=== PATIENT | female | born 1985 | race Caucasian/White ===

== ENCOUNTER 2018-12-11 11:49 | Emergency (ER) | payer MEDICAID ==
[~2018-12-11] VITALS: Ht 147.3 cm; Wt 56.0 kg
[~2018-12-11 11:49] MED LIST: PREN1TAB49 PO
[2018-12-11 12:01] VITALS: BP 121/69; PULSE 73; RESP 18; Ht 147.3 cm; Wt 56.0 kg
[2018-12-11] MEDS ORDERED: ONDA4TAB8 PO (15:29)
[2018-12-11] MEDS ORDERED: IBUP-1542 PO (15:29)
--- NOTE | 2018-12-11 15:32 | ERD ---
ER Documentation Chief Complaint Chief Complaint R SANTACRUZ, R eye, R face pain, nausea, dizziness X 5 days LRQ AP X 1 month HPI 33-year-old female presents the emergency department with a number of different complaints. Patient states that she had a nonspecific left upper quadrant abdominal pain that she is had for over a month. It comes and goes and has no specific pattern. Associated with nausea but no diarrhea and no urinary symptoms or gynecologic symptoms. Patient reports no fevers or chills associated with the abdominal pain. She also describes a right-sided headache and right eye pain and face pain. This does not seem to be temporally related to the abdominal pain and seems to be separate. She reports no trauma, focal weakness, numbness. Her symptoms are not acute in onset or thunderclap in nature. ROS All systems reviewed and are negative except as per history of present illness. Medications Home Meds Active Scripts Ondansetron Hcl* (Zofran*) 4 Mg Tablet, 4 MG PO Q8H PRN for NAUSEA AND/OR VOMITING, #30 TAB Prov:LITO GALDAMEZ 12/11/18 Ibuprofen* (Ibuprofen*) 600 Mg Tablet, 600 MG PO Q6H PRN for PAIN, #20 TAB Prov:LITO GALDAMEZ 12/11/18 Reported Medications Vits W-Ca,Fe,Fa(<1MG) () 1 Tab Tablet, 1 PO DAILY 02/15/11 Allergies Allergies: Coded Allergies: No Known Drug Allergies (Verified Allergy, Unknown, 11/15/13) PMhx/Soc Medical and Surgical Hx: pt denies Medical Hx History of Surgery: Yes (3 C-SECTIONS) Hx Neurological Disorder: No Hx Respiratory Disorders: No Hx Cardiac Disorders: No Hx Psychiatric Problems: No Hx Miscellaneous Medical Probl: No Hx Alcohol Use: No Hx Substance Use: No Hx Tobacco Use: No Smoking Status: Never smoker FmHx Noncontributory for chief complaint Physical Exam Vitals Vital Signs Date Temp Pulse Resp B/P (MAP) Pulse Ox O2 O2 Flow FiO2 Time Delivery Rate 12/11/18 99.8 73 18 121/69 97 12:01 (86) Physical Exam GENERAL: The patient is well developed and appropriate for usual state of health in no apparent distress HEENT: Pupils equal, round, and reactive to light. EOMI. There is no scleral icterus. NECK: C-spine is soft and supple, there is no meningismus. There is no cervical lymphadenopathy. LUNGS: Clear to auscultation bilaterally. There are no rales, wheezes or rhonchi. HEART: Regular rate and rhythm, no murmurs, clicks, rubs or gallops. ABDOMEN: Soft, non-tender, non-distended. There are bowel sounds in all four quadrants. No rebound or guarding. EXTREMITIES: There is no peripheral cyanosis or edema. No focal swelling or erythema. NEURO: The patient moves all four extremities with 5/5 strength. Cranial nerves II - XII are intact. Normal gait. Alert and oriented SKIN: There is no apparent rash or petechiae. HEME/LYMPHATIC: There is no evidence of excessive bruising or lymphedema. PSYCHIATRIC: The patient does not appear anxious or depressed. Result Diagram: 12/11/18 1254 12/11/18 1254 Results 24 hrs Laboratory Tests Test 12/11/18 12:54 White Blood Count 5.7 10^3/ul Red Blood Count 4.11 10^6/ul Hemoglobin 11.6 g/dl Hematocrit 36.6 % Mean Corpuscular Volume 89.1 fl Mean Corpuscular Hemoglobin 28.2 pg Mean Corpuscular Hemoglobin Concent 31.7 g/dl Red Cell Distribution Width 12.9 % Platelet Count 219 10^3/UL Mean Platelet Volume 10.8 fl Immature Granulocytes % 0.200 % Neutrophils % 68.0 % Lymphocytes % 26.5 % Monocytes % 4.4 % Eosinophils % 0.5 % Basophils % 0.4 % Nucleated Red Blood Cells % 0.0 /100WBC Immature Granulocytes # 0.010 10^3/ul Neutrophils # 3.8 10^3/ul Lymphocytes # 1.5 10^3/ul Monocytes # 0.3 10^3/ul Eosinophils # 0.0 10^3/ul Basophils # 0.0 10^3/ul Nucleated Red Blood Cells # 0.0 10^3/ul Urine Color RED Urine Clarity SLIGHTLY CLOUDY Urine pH 6.0 Urine Specific [place] 1.003 Urine Ketones NEGATIVE mg/dL Urine Nitrite NEGATIVE mg/dL Urine Bilirubin NEGATIVE mg/dL Urine Urobilinogen NEGATIVE mg/dL Urine Leukocyte Esterase NEGATIVE Juan Jose/ul Urine Microscopic RBC 2 /HPF Urine Microscopic WBC 4 /HPF Urine Squamous Epithelial Cells FEW /HPF Urine Bacteria FEW /HPF Urine Hemoglobin 3+ mg/dL Urine Glucose NEGATIVE mg/dL Urine Total Protein NEGATIVE mg/dl Sodium Level 144 mmol/L Potassium Level 3.8 mmol/L Chloride Level 106 mmol/L Carbon Dioxide Level 27 mmol/L Anion Gap 11 Blood Urea Nitrogen 8 mg/dl Creatinine 0.50 mg/dl Est Glomerular Filtrat Rate mL/min > 60 mL/min Glucose Level 95 mg/dl Calcium Level 9.6 mg/dl Total Bilirubin 0.3 mg/dl Direct Bilirubin 0.00 mg/dl Indirect Bilirubin 0.3 mg/dl Aspartate Amino Transf (AST/SGOT) 20 IU/L Alanine Aminotransferase (ALT/SGPT) 15 IU/L Alkaline Phosphatase 74 IU/L Total Protein 8.2 g/dl Albumin 4.5 g/dl Globulin 3.70 g/dl Albumin/Globulin Ratio 1.21 Lipase 88 U/L Serum HCG, Qualitative NEGATIVE Procedures/MDM Patient was taken to a room, seen and evaluated. Comfort measures were initiated. Diagnostic tests were ordered and reviewed. RADIOLOGY: Reviewed with the radiologist REEVALUATION: 1530: Diagnostic tests were appreciated. Patient remained comfortable in appearance. MEDICAL DECISION MAKIN-year-old female resents the emergency room with nonspecific headache, eye pain as well as abdominal pain. Her diagnostic work- up has focused on all of the above concerns including neurologic, intracranial concerns of her right eye and head pain. Fortunately, her test results show no evidence of meningitis, no evidence of intra-cranial concerns. She is neurologically normal at this time. In regards to her abdominal pain, she has evidence of gallstones, but no evidence of cholecystitis or obstruction and no evidence of pancreatitis. Overall, she appears to be clinically nontoxic and appropriate for outpatient referral. Departure Diagnosis: Primary Impression: Gallstone Condition: Stable Patient Instructions: Gallstones Additional Instructions: Consulte a rajput mdico para el seguimiento segn lo discutido. Lleve harsh copia de los resultados de rajput prueba, si corresponde, a esta visita de seguimiento. Consulte a rajput mdico o regrese aqu si april sntomas no mejoran christian se esperaba. En cualquier momento, regrese al departamento de emergencias por cualquier cambio o empeoramiento en april sntomas. LITO GALDAMEZ December 11, 2018 15:32
== END 2018-12-11 16:07 | disposition home or self-care (01) ==
LOC: FTE 11:49
DX: K80.20 Calculus of gallbladder without cholecystitis without obstruction (principal); R51 Headache
CPT/HCPCS: 36415; 70450; 76705; 80053; 81001; 83690; 84703; 85025; Z7502